=== PATIENT | female | born 1990 | race Caucasian/White ===

== ENCOUNTER 2019-09-09 21:38 | Emergency (ER) | payer MEDICAID ==
[~2019-09-09] VITALS: Ht 157.5 cm; Wt 101.6 kg
[2019-09-09 22:00] VITALS: BP_SYST 141
--- NOTE | 2019-09-09 22:00 | NUR ---
Patient to ER bed 08 to gown for evaluation. Side rails up.
--- NOTE | 2019-09-09 22:15 | NUR ---
PATIENT REPORTS WAS DIAGNOSED WITH WALKING PNEUMONIA 1 MONTH AGO WAS FEELING BETTER. PATIENT NOW REPORTS COUGH AND CONGESTION X 2 DAYS. DENIES ANY NAUSEA, VOMITING OR DIARRHEA. AFEBRILE. PAIN 1/10. NO OTHER COMPLAINTS/INJURIES PER PATIENT OR NOTED. WILL CONTINUE TO MONITOR.
--- NOTE | 2019-09-09 22:43 | NUR ---
ER at bedside examining patient.
[2019-09-09] MEDS ORDERED: ERYTHROMYCIN BASE 500 MG TABLET PO ONE (23:00)
[2019-09-09 23:26] VITALS: BP_SYST 138
--- NOTE | 2019-09-09 23:26 | NUR ---
Patient given written and verbal discharge instructions and verbalizes understanding. ER MD discussed with patient the results and treatment provided. Patient in stable condition. ID arm band removed. Rx of erythromycin given. Patient educated on pain management and to follow up with PMD. Pain Scale 0/10 Opportunity for questions provided and answered. Medication side effect fact sheet provided.
== END 2019-09-09 23:26 | disposition home or self-care (01) ==
LOC: SED 21:38
DX: J40 Bronchitis, not specified as acute or chronic (principal)
CPT/HCPCS: 71045; 81025; 99283